=== PATIENT | male | born 1935 | race Caucasian/White ===

== ENCOUNTER → 2016-09-07 | Outpatient (REF) ==
[~2016-09-07] MED LIST: 00186-0370-20 IH; AMBIEN 5MG TABLE5 MG PO; GENTAMICIN EYE D5 ML OP; LEVAQUIN 5500 MG/TA1 PO; LEVAQUIN 750MG750 M1 PO; LEXAPRO 10MG10 MG PO; LIPITOR 40MG TA40 MG PO; LORTAB 5/500 501 TAB PO; PLAVIX 75MG TAB75 MG PO; PRIL40 PO; PROCARDIA XL 3030 MG PO; REMERON 15M15 MG/TA1 PO; TYLENOL 325MG325 MG PO; ZOFRAN 4MG T4 MG/TAB PO
[2016-09-07 18:32] LABS: THYROID STIMULATING HORMONE 4.14 uIU/mL (0.465-4.680)
== END ==
LOC: ZLAB.WCH 16:22
PROVIDERS: Internal Medicine
DX: Z01.89 Encounter for other specified special examinations (principal)

== ENCOUNTER → 2016-10-23 | Outpatient (REF) | LOC: ZLAB.WCH 11:16 | DX: Z01.89 Encounter for other specified special examinations (principal) | CPT/HCPCS: G0103 ==

== ENCOUNTER → 2017-04-05 | Outpatient (REF) | LOC: ZLAB.WCH 08:59 | DX: Z01.89 Encounter for other specified special examinations (principal) ==